=== PATIENT | female | born 1995 | race Caucasian/White ===

== ENCOUNTER 2021-01-19 20:19 | Emergency (ER) | payer OTHER, MEDICAID ==
[~2021-01-19] VITALS: Ht 165.1 cm; Wt 59.1 kg
[~2021-01-19 20:19] MED LIST: IBU800 M1 PO; MOTRIN 800800 MG/TAB PO; PERCOCET 325 MG1 TA2 PO; PRENATAL FORMU1 EAC3 PO
[2021-01-19 21:59] VITALS: TEMP 97.6
[2021-01-19 22:47] LABS: STREP SCREEN NEGATIVE
[2021-01-19 23:17] VITALS: BP 114/70; PULSE 72
== END 2021-01-19 23:17 | disposition home or self-care (01) ==
LOC: COL.ER 20:19
PROVIDERS: Student in an Organized Health Care Education/Training Program
DX: J02.9 Acute pharyngitis, unspecified (principal)
CPT/HCPCS: J8540

== ENCOUNTER 2021-03-19 18:19 | Emergency (ER) | payer OTHER ==
[~2021-03-19] VITALS: Ht 165.1 cm; Wt 59.1 kg
[2021-03-19 18:31] LABS: COLLECTION METHOD CLEAN CATCH
[2021-03-19 18:43] LABS: MUCOUS Present (NOT PRESENT); PH 5 (5-8); SQUAMOUS EPITHELIAL 0-2 /hpf (0-10); URINE APPEARANCE Clear (CLEAR/HAZY); URINE BACTERIA None Seen (NONE SEEN); URINE BILIRUBIN Negative (NEGATIVE); URINE BLOOD Negative (NEGATIVE); URINE COLOR Yellow (YELLOW); URINE GLUCOSE Negative (NEGATIVE); URINE KETONE Negative (NEGATIVE); URINE LEUKOCYTE ESTERASE Negative (NEGATIVE); URINE NITRATE Negative (NEGATIVE); URINE PROTEIN(semi-quant) Negative (NEGATIVE); URINE RBC 0-2 /hpf (0-2)
[2021-03-19] MEDS ORDERED: FLAGYL500 MG PO (19:58)
[2021-03-19 20:09] VITALS: BP 110/64; PULSE 72; TEMP 98.2
== END 2021-03-19 20:10 | disposition home or self-care (01) ==
LOC: COL.ER 18:19
PROVIDERS: Student in an Organized Health Care Education/Training Program
DX: N76.0 Acute vaginitis (principal); Z88.0 Allergy status to penicillin
CPT/HCPCS: J0696

== ENCOUNTER → 2021-05-14 | Emergency (ER) | payer OTHER, MEDICAID ==
[~2021-05-14] VITALS: Ht 165.1 cm; Wt 58.2 kg
[~2021-05-14] MED LIST changes: +FLAGYL500 MG PO
[2021-05-14 17:36] VITALS: TEMP 98.1
[2021-05-14 18:23] LABS: COLLECTION METHOD CLEAN CATCH
[2021-05-14 18:40] LABS: MUCOUS Present (NOT PRESENT); PH 5 (5-8); SQUAMOUS EPITHELIAL 0-2 /hpf (0-10); URINE APPEARANCE Clear (CLEAR/HAZY); URINE BACTERIA None Seen /hpf (NONE SEEN); URINE BILIRUBIN Negative (NEGATIVE); URINE BLOOD Negative (NEGATIVE); URINE COLOR Yellow (YELLOW); URINE GLUCOSE Negative (NEGATIVE); URINE KETONE Trace (NEGATIVE); URINE LEUKOCYTE ESTERASE Negative (NEGATIVE); URINE NITRATE Negative (NEGATIVE); URINE PROTEIN(semi-quant) Negative (NEGATIVE); URINE RBC 0-2 /hpf (0-2)
[2021-05-14 21:15] VITALS: BP 124/78; PULSE 68
== END ==
LOC: COL.ER 16:56
PROVIDERS: Physician Assistant
DX: N94.10 Unspecified dyspareunia (principal); R35.0 Frequency of micturition; Z32.02 Encounter for pregnancy test, result negative

== ENCOUNTER → 2021-08-12 | Outpatient (CLI) | payer MEDICAID | LOC: COL.RAD 13:43 | DX: R10.33 Periumbilical pain (principal) ==

== ENCOUNTER 2021-09-13 16:48 | Emergency (ER) | payer MEDICAID ==
[~2021-09-13] VITALS: Ht 165.1 cm; Wt 59.1 kg
[2021-09-13 17:46] LABS: STREP SCREEN NEGATIVE
[2021-09-13 18:08] VITALS: BP 111/65; PULSE 76; TEMP 98.8
== END 2021-09-13 18:08 | disposition home or self-care (01) ==
LOC: COL.ER 16:48
PROVIDERS: Nurse Practitioner Primary Care
DX: J02.8 Acute pharyngitis due to other specified organisms (principal); Z20.822 Contact with and (suspected) exposure to COVID-19

== ENCOUNTER 2021-10-03 19:42 | Emergency (ER) | payer MEDICAID ==
[~2021-10-03] VITALS: Ht 165.1 cm; Wt 61.4 kg
[2021-10-03 20:16] VITALS: BP 114/74; TEMP 98.6
[2021-10-03 21:05] LABS: STREP SCREEN NEGATIVE
[2021-10-03 21:28] VITALS: PULSE 82
== END 2021-10-03 21:28 | disposition home or self-care (01) ==
LOC: COL.ER 19:42
PROVIDERS: Nurse Practitioner
DX: J03.90 Acute tonsillitis, unspecified (principal)

== ENCOUNTER 2022-09-21 20:55 | Emergency (ER) | payer OTHER, MEDICAID ==
[~2022-09-21] VITALS: Ht 165.1 cm; Wt 63.6 kg
[2022-09-21 21:27] LABS: COLLECTION METHOD CLEAN CATCH
[2022-09-21 21:31] LABS: BASO % 0.5 % (0.0-2.0); EOS # 0.2 K/mm3 (0.0-0.7); EOS % 3.1 % (0.0-4.0); GRAN # 3.6 K/mm3 (1.4-6.5); GRAN % 55.6 % (42.2-75.2); HEMOGLOBIN 11.2 g/dl (12.5-16.0); LYMPH # 2.2 K/mm3 (1.2-3.4); LYMPH % 33.5 % (20.0-51.0); MEAN CELL VOLUME 94 fl (80.0-100.0); MEAN CORPUSCULAR HEMOGLOBIN 30 pg (27-31); MEAN CORPUSCULAR HGB CONC 33 g/dl (33.0-37.0); MEAN PLATELET VOLUME 9.8 fl (7.4-10.4); MONO # 0.5 K/mm3 (0.1-0.6); PLATELET COUNT 258 K/mm3 (130-400); RED BLOOD COUNT 3.69 M/mm3 (4.10-5.30); REDCELL DISTRIBUTION WIDTH-CV 13.8 % (11.5-14.5)
[2022-09-21 21:33] LABS: MUCOUS Present (NOT PRESENT); SQUAMOUS EPITHELIAL 0-2 /hpf (0-10); URINE BACTERIA None Seen /hpf (NONE SEEN); URINE RBC 0-2 /hpf (0-2)
[2022-09-21 21:34] LABS: URINE APPEARANCE Clear (CLEAR/HAZY); URINE BLOOD Negative (NEGATIVE); URINE COLOR Yellow (YELLOW); URINE GLUCOSE Negative (NEGATIVE); URINE KETONE Negative (NEGATIVE); URINE NITRATE Negative (NEGATIVE); URINE PROTEIN(semi-quant) Negative (NEGATIVE); URINE UROBILINOGEN 0.2 E.U/dL (0.2-1.0)
[2022-09-21 21:47] LABS: HEMATOCRIT 34.5 % (37.0-47.0)
[2022-09-21 21:53] LABS: BILIRUBIN,TOTAL 0.2 mg/dL (0.2-1.2); CALCIUM 9.3 mg/dL (8.4-10.2); CREATININE, serum 0.68 mg/dL (0.57-1.11); TOTAL PROTEIN 7.1 gm/dL (6.2-8.1)
[2022-09-21] MEDS ORDERED: ZOFRAN ODT4 MG PO (22:02)
[2022-09-21 22:11] VITALS: BP 107/74; PULSE 64; TEMP 98.3
== END 2022-09-21 22:11 | disposition home or self-care (01) ==
LOC: COL.ER 20:55
PROVIDERS: Emergency Medicine
DX: R11.2 Nausea with vomiting, unspecified (principal); R42 Dizziness and giddiness; R53.81 Other malaise
CPT/HCPCS: J2405; J7030

== ENCOUNTER 2023-07-30 18:02 | Emergency (ER) | payer OTHER, MEDICAID ==
[~2023-07-30] VITALS: Ht 165.1 cm; Wt 62.3 kg
[~2023-07-30 18:02] MED LIST changes: +ZOFRAN ODT4 MG PO
[2023-07-30 18:10] VITALS: TEMP 98.6
[2023-07-30 18:44] LABS: COLLECTION METHOD CLEAN CATCH
[2023-07-30 18:54] LABS: PH 6.5 (5.0-8.5); URINE APPEARANCE TURBID (CLEAR/HAZY); URINE BLOOD 3+ (NEGATIVE); URINE COLOR Dark Yellow (YELLOW); URINE GLUCOSE NEGATIVE (NEGATIVE); URINE KETONE NEGATIVE (NEGATIVE); URINE NITRATE POSITIVE (NEGATIVE); URINE PROTEIN(semi-quant) 3+ (NEGATIVE)
[2023-07-30] MEDS ORDERED: cefTRIAXone 1 G,Lidocaine PF 1% 2.1 ML IM ONE (19:15)
[2023-07-30] MEDS ORDERED: OMNICEF 300MG300 MG PO (19:21)
[2023-07-30 19:54] VITALS: BP 111/74; PULSE 82
[2023-07-30 20:01] LABS: MUCOUS PRESENT (NOT PRESENT); URINE BACTERIA MODERATE /hpf (NONE SEEN); URINE RBC >50 /hpf (0-2); URINE WBC >50 /hpf (0-2)
== END 2023-07-30 19:59 | disposition home or self-care (01) ==
LOC: COL.ER 18:02
PROVIDERS: Nurse Practitioner
DX: N39.0 Urinary tract infection, site not specified (principal)
CPT/HCPCS: J0696

== ENCOUNTER 2023-11-22 01:51 | Observation (INO) | payer OTHER, MEDICAID ==
[~2023-11-22] VITALS: Ht 165.1 cm; Wt 60.5 kg
[2023-11-22] VITALS (8 sets, daily range): BP systolic 91–118; BP diastolic 50–78; PULSE 70–111; TEMP 98–99.2
[~2023-11-22 01:51] MED LIST changes: +OMNICEF 300MG300 MG PO
[2023-11-22 02:39] LABS: COLLECTION METHOD CLEAN CATCH
[2023-11-22] MEDS ORDERED: NS 1,000 ML IV ONE (02:45)
[2023-11-22 02:46] LABS: BASO % 0.3 % (0.0-2.0); EOS # 0.2 K/mm3 (0.0-0.7); EOS % 3.3 % (0.0-4.0); GRAN # 3.8 K/mm3 (1.4-6.5); HEMOGLOBIN 11.8 g/dl (12.5-16.0); LYMPH # 1.2 K/mm3 (1.2-3.4); LYMPH % 20.4 % (20.0-51.0); MEAN CELL VOLUME 95 fl (80.0-100.0); MEAN CORPUSCULAR HEMOGLOBIN 31 pg (27-31); MEAN CORPUSCULAR HGB CONC 33 g/dl (33.0-37.0); MEAN PLATELET VOLUME 9.8 fl (7.4-10.4); MONO # 0.5 K/mm3 (0.1-0.6); MONO % 8.5 % (1.7-9.3); PLATELET COUNT 173 K/mm3 (130-400); RED BLOOD COUNT 3.78 M/mm3 (4.10-5.30)
[2023-11-22 02:52] LABS: PH 5.5 (5.0-8.5); URINE APPEARANCE CLEAR (CLEAR/HAZY); URINE BLOOD NEGATIVE (NEGATIVE); URINE COLOR YELLOW (YELLOW); URINE GLUCOSE NEGATIVE (NEGATIVE); URINE KETONE 1+ (NEGATIVE); URINE NITRATE NEGATIVE (NEGATIVE); URINE PROTEIN(semi-quant) NEGATIVE (NEGATIVE); URINE UROBILINOGEN 0.2 E.U/dL (0.2-1.0)
[2023-11-22 03:03] LABS: ALBUMIN 3.9 g/dL (3.5-5.0); CREATININE, serum 0.68 mg/dL (0.57-1.11); POTASSIUM 3.4 mEq/L (3.5-4.5); TOTAL PROTEIN 6.9 g/dl (6.2-8.1)
[2023-11-22 03:11] LABS: HEMATOCRIT 35.8 % (37.0-47.0)
[2023-11-22 03:19] LABS: BILIRUBIN,TOTAL 0.2 mg/dL (0.2-1.2)
[2023-11-22] MEDS ORDERED: Iohexol 300 - 100 ML VIAL IV ONE (03:37)
[2023-11-22] MEDS ORDERED: NS 50 ML IV ONE (03:38)
[2023-11-22] MEDS ORDERED: metroNIDAZOLE 100 ML IV ONE (04:45)
[2023-11-22] MEDS ORDERED: NS & 40 mEq KCl 1,000 ML IV ONE (05:45)
[2023-11-22] MEDS ORDERED: NS 1,000 ML IV SCH (08:00)
[2023-11-22] MEDS ORDERED: Ondansetron 4 MG/2 ML VIAL IV PRN (08:00)
[2023-11-22] MEDS ORDERED: Acetaminophen 325 MG TAB PO PRN (08:00)
[2023-11-23 01:00] VITALS: BP_SYST 96
[2023-11-23 04:00] VITALS: BP 120/74; PULSE 76; TEMP 98.4
[2023-11-23 04:45] VITALS: BP_SYST 120
[2023-11-23 06:41] LABS: HEMOGLOBIN 10.1 g/dl (12.5-16.0); MEAN CELL VOLUME 93 fl (80.0-100.0); MEAN CORPUSCULAR HEMOGLOBIN 31 pg (27-31); MEAN CORPUSCULAR HGB CONC 33 g/dl (33.0-37.0); PLATELET COUNT 144 K/mm3 (130-400); RED BLOOD COUNT 3.29 M/mm3 (4.10-5.30); REDCELL DISTRIBUTION WIDTH-CV 12.9 % (11.5-14.5)
[2023-11-23 06:49] LABS: HEMATOCRIT 30.5 % (37.0-47.0)
[2023-11-23 06:51] LABS: ANION GAP 6 mmol/L (7-16); BLOOD UREA NITROGEN < 5 mg/dL (7-19); CALCIUM 8.2 mg/dL (8.4-10.2); CHLORIDE 113 mEq/L (98-107); CREATININE, serum 0.59 mg/dL (0.57-1.11); GLUCOSE 85 mg/dL (70-99); POTASSIUM 3.9 mEq/L (3.5-4.5); SODIUM 140 mEq/L (136-145)
[2023-11-23 07:17] VITALS: BP 113/70; PULSE 79; TEMP 98.1
[2023-11-23 07:20] LABS: BAND 2 % (0-10); EOSINOPHIL 4 % (0-4); LYMPHOCYTE 24 % (20.0-51.0); NEUTROPHILS 65 % (42.0-75.2); PLATELET ESTIMATE NORMAL (NORMAL)
[2023-11-23 09:30] VITALS: BP_SYST 112
[2023-11-23 11:58] VITALS: BP 112/73; PULSE 86; TEMP 98.3
== END 2023-11-23 12:20 | disposition home or self-care (01) ==
LOC: COL.ER 01:51 → MEDICAL 07:57
PROVIDERS: Family Medicine; ADMIT Internal Medicine
DX: K52.9 Noninfective gastroenteritis and colitis, unspecified (principal); B96.21 Shiga toxin-producing Escherichia coli [E. coli] [STEC] O157 as the cause of diseases classified elsewhere; E87.6 Hypokalemia
CPT/HCPCS: OP; G0378; J1650; J1836; J2405; J3480; J7030; Q9967